=== PATIENT | female | born 1955 | race Caucasian/White ===

== ENCOUNTER 2020-01-08 09:09 | Day surgery (SDC) | payer OTHER ==
[~2020-01-08 09:09] MED LIST: AVALIDE 300-121 EACH PO; CATAFLAN PO; CRESTOR10 MG PO; GABAPENT PO; PROTONIX40 MG PO
== END 2020-01-08 15:50 | disposition home or self-care (01) ==
LOC: CIR.AMB 09:09
PROVIDERS: ATTEND Colon & Rectal Surgery
DX: K62.1 Rectal polyp (principal); N81.6 Rectocele